=== PATIENT | female | born 1970 | race Caucasian/White ===

== ENCOUNTER → 2019-01-21 11:27 | Outpatient (CLI) | payer OTHER, SELFPAY ==
[2019-01-21 12:38] LABS: Add Manual Diff / Slide Review NO; Basophils Absolute Auto 100 /uL (0-100); Basophils Percent Auto 1.5 % (0-2); Eosinophils Absolute Auto 200 /uL (0-450); Eosinophils Percent Auto 3.5 % (2-4); Hematocrit 30.9 % (36-46); Hemoglobin 9.7 g/dL (12.0-16.0); Lymphocytes Absolute Auto 1200 /uL (1100-4500); Lymphocytes Percent Auto 19.7 % (25-40); Mean Corpuscular HGB Conc 31.5 % (30-36); Mean Corpuscular Hemoglobin 25.5 PG (26-34); Mean Corpuscular Volume 80.9 fL (80-100); Monocytes Absolute Auto 700 /uL (0-900); Neutrophils Absolute Auto 3800 /uL (1500-7000); Neutrophils Percent Auto 63.3 % (50-75); Platelet Count 279 X10^3/uL (150-400); Red Blood Cell Count 3.82 X10^6/uL (4.0-5.2); White Blood Cell Count 5.9 X10^3/uL (4.5-11.0)
[2019-01-21 12:52] LABS: Iron 24 ug/dL (37-170)
[2019-01-21 12:55] LABS: Alanine Aminotransferase 30 IU/L (9-52); Albumin 4.4 g/dL (3.5-5.0); Albumin Globulin Ratio 1.5 (1.0-2.8); Alkaline Phosphatase 45 U/L (38-126); Aspartate Aminotransferase 22 IU/L (14-36); Bilirubin Total 0.2 mg/dL (0.2-1.3); Blood Urea Nitrogen 15 mg/dL (7-17); Calcium 9.2 mg/dL (8.4-10.2); Carbon Dioxide 27 mmol/L (22-32); Chloride 102 mmol/L (98-107); Estimated Glomerular Filt Rate 59.4 mL/min (>60); Glucose 81 mg/dL (70-100); HEMOLYSIS < 15 (0-50); Potassium 4.3 mmol/L (3.4-5.1); Sodium 138 mmol/L (137-145); Total Protein 7.4 g/dL (6.3-8.2)
[2019-01-21 13:03] LABS: Percent Iron Saturation 6 % (15-50); Total Iron Binding Capacity 434 ug/dL (265-497); Transferrin 339 mg/dL (206-381)
[2019-01-21 13:25] LABS: HEMOLYSIS < 15 (0-50)
[2019-01-21 13:28] LABS: Ferritin 4.9 ng/mL (6.27-137)
[2019-01-21 13:58] LABS: Folate 13.6 ng/mL (2.76-20.0); Vitamin B12 522 pg/mL (239-931)
== END ==
PROVIDERS: PCP Physician Assistant; Visit Provider Physician Assistant
DX: D50.9 Iron deficiency anemia, unspecified (principal); E03.9 Hypothyroidism, unspecified; R53.83 Other fatigue
CPT/HCPCS: 36415; 80053; 82607; 82728; 82746; 83540; 83550; 84443; 85025

== ENCOUNTER → 2019-04-26 10:51 | Outpatient (CLI) | payer OTHER, SELFPAY | PROVIDERS: PCP Physician Assistant; Visit Provider Physician Assistant | DX: J02.9 Acute pharyngitis, unspecified (principal) | CPT/HCPCS: 87070; 87185 ==

== ENCOUNTER → 2019-05-04 16:03 | Outpatient (CLI) | payer OTHER, SELFPAY ==
[2019-05-04 17:03] LABS: Add Manual Diff / Slide Review NO; Basophils Absolute Auto 100 /uL (0-100); Basophils Percent Auto 1.4 % (0-2); Eosinophils Absolute Auto 200 /uL (0-450); Eosinophils Percent Auto 3.2 % (2-4); Hematocrit 31.9 % (36-46); Hemoglobin 10.5 g/dL (12.0-16.0); Lymphocytes Absolute Auto 1400 /uL (1100-4500); Lymphocytes Percent Auto 24.7 % (25-40); Mean Corpuscular HGB Conc 32.8 % (30-36); Mean Corpuscular Hemoglobin 26.4 PG (26-34); Mean Corpuscular Volume 80.4 fL (80-100); Monocytes Absolute Auto 500 /uL (0-900); Monocytes Percent Auto 9.2 % (3-14); Neutrophils Absolute Auto 3400 /uL (1500-7000); Neutrophils Percent Auto 61.5 % (50-75); Platelet Count 259 X10^3/uL (150-400); Red Blood Cell Count 3.97 X10^6/uL (4.0-5.2); Red Cell Distribution Width 20.4 % (11.6-14.8); White Blood Cell Count 5.5 X10^3/uL (4.5-11.0)
[2019-05-04 17:19] LABS: Alanine Aminotransferase 42 IU/L (9-52); Albumin 4.3 g/dL (3.5-5.0); Albumin Globulin Ratio 1.4 (1.0-2.8); Alkaline Phosphatase 63 U/L (38-126); Aspartate Aminotransferase 29 IU/L (14-36); Bilirubin Total 0.2 mg/dL (0.2-1.3); Blood Urea Nitrogen 21 mg/dL (7-17); Calcium 9.2 mg/dL (8.4-10.2); Carbon Dioxide 29 mmol/L (22-32); Chloride 102 mmol/L (98-107); Estimated Glomerular Filt Rate 59.2 mL/min (>60); Globulin 3.1 g/dL (1.7-4.1); Glucose 87 mg/dL (70-100); HEMOLYSIS < 15 (0-50); Iron 81 ug/dL (37-170); Potassium 4.4 mmol/L (3.4-5.1); Sodium 140 mmol/L (137-145); Total Protein 7.4 g/dL (6.3-8.2)
[2019-05-04 17:29] LABS: Percent Iron Saturation 23 % (15-50); Total Iron Binding Capacity 359 ug/dL (265-497); Transferrin 305 mg/dL (206-381)
[2019-05-04 17:51] LABS: Thyroid Stimulating Hormone 9.87 uIU/mL (0.47-4.68)
[2019-05-04 17:55] LABS: Ferritin 11.5 ng/mL (6.27-137)
[2019-05-04 19:55] LABS: Anisocytosis 1+; Poikilocytosis 1+
== END ==
PROVIDERS: PCP Physician Assistant; Visit Provider Physician Assistant
DX: D50.9 Iron deficiency anemia, unspecified (principal); K62.5 Hemorrhage of anus and rectum; E03.9 Hypothyroidism, unspecified
CPT/HCPCS: 36415; 80053; 82728; 83540; 83550; 84443; 85025

== ENCOUNTER 2019-06-07 13:57 | Day surgery (SDC) | payer OTHER, SELFPAY ==
[2019-06-07] VITALS (7 sets, daily range): BP systolic 110–127; BP diastolic 36–79; PULSE 69–93; RESP 9–15; TEMP 36.3–36.6; O2SAT 98–100; BMI 24.0
--- NOTE | 2019-06-07 | PATH_ITS ---
[facility] Accession Number: [id number] . 01 Material submitted: . colon - ASCENDING COLON POLYP . 02 Diagnosis: Biopsy, Ascending Colon Polyp: Tubular adenoma involving single biopsy fragment. V/06/09/2019 . 02 Electronically signed: . Ariel Reno MD, Pathologist NPI- [id number] . 01 Gross description: . ASCENDING COLON POLYP: Received in formalin are 2 fragment(s) of lima, soft tissue measuring 0.5 x 0.4 x 0.4 cm to 0.5 x 0.4 x 0.1 cm submitted entirely in 1 cassette(s) /CKI /CKI . 02 Pathologist provided ICD-10: D12.2 . 02 CPT . 563797 Performed at: 01 [facility] [address] [address], [place], [place] [id number] MD Aguilar Root MD Phone: [phone] Performed at: 02 [facility] [address] [place], [place] [id number] MD Amparo Holguin MD Phone: [phone]
[2019-06-07] MEDS: SODIUM CHLORIDE 0.9% 1,000 ML 200 ML IV ×2 (14:14→16:17)
[2019-06-07] MEDS: MIDAZOLAM 5 MG/5 ML VIAL IV ×3 (15:00→15:51)
--- NOTE | 2019-06-07 15:13 | PM.HP.1 ---
History of Present Illness Date Patient Seen: 06/07/19 Time Patient Seen: 15:13 Chief complaint: [id number] Narrative: Patient seen and examined unchanged since recent clinic exam Plan for diagnostic colonoscopy Patient History Medical History (Updated 06/07/19 @ 14:19 by Danielle Klein RN) Anxiety (Acute) Bruises easily (Acute) Constipation (Acute) Difficulty swallowing (Acute) Elevated cholesterol (Acute) Former smoker (Acute) History of headache (Acute) History of nausea (Acute) Shortness of breath (Acute) Anemia (Chronic ~2014) Eczema (Chronic ~2013) Headache (Chronic ~2014) Hypothyroidism (Chronic ~2014) Irregular menstrual cycle (Chronic ~2017) Seasonal allergies (Chronic) Abnormal Pap smear of cervix (Resolved ~2017) Chicken pox (Resolved ~1974) Surgical History (Updated 01/18/19 @ 22:31 by Daksha Queen) Hemorrhoid (Chronic ~2003) Anesthesia (Resolved) History of tubal ligation (Resolved ~1999) Family History (Updated 05/16/19 @ 16:46 by Suzy Shabazz RN) Father Diabetes mellitus Hypertension Hyperlipidemia Stroke Gallstones Mother Hyperlipidemia Hypertension Gallstones Sister Gallstones Grandmother Diabetes mellitus Stroke Grandfather Diabetes mellitus Stroke Social History (Updated 05/16/19 @ 16:47 by Suzy Shabazz RN) household members: family occupational status: employed Smoking Status: Former smoker (I quit in [id number].) Tobacco: How many years used: 12 second hand exposure: No alcohol intake: current (whiskey occasionally.) substance use type: does not use Family & Social History Family History (Updated 05/16/19 @ 16:46 by Suzy Shabazz RN) Father Diabetes mellitus Hypertension Hyperlipidemia Stroke Gallstones Mother Hyperlipidemia Hypertension Gallstones Sister Gallstones Grandmother Diabetes mellitus Stroke Grandfather Diabetes mellitus Stroke Social History: household members family Tobacco & Substance use: Smoking Status Former smoker alcohol intake current Meds Home Medications Medication Instructions Recorded Confirmed Type Desiccated Liver 750 mg PO BID 12/29/18 06/07/19 History Thyroid Energy 1 cap PO BID 12/29/18 06/07/19 History fluoxetine 10 mg capsule 20 mg PO .HS PRN cap 12/29/18 06/07/19 History ibuprofen 600 mg tablet 600 mg PO 2XW PRN tab 12/29/18 06/07/19 History levothyroxine 75 mcg tablet 75 mcg PO DAILY #45 tab 05/09/19 06/07/19 Rx Allergies Allergy/AdvReac Type Severity Reaction Status Date / Time No Known Drug Allergies Allergy Verified 06/07/19 14:15 Exam Vital Signs (past 8 hours): - 06/07/19 14:26 Temperature 97.9 F Pulse Rate 70 Respiratory Rate 15 Blood Pressure 127/78 Pulse Oximetry 100 Oxygen Delivery Method Room Air
[2019-06-07] MEDS: fentaNYL 250 MCG/5 ML INJ IV ×2 (15:38→15:51)
[2019-06-07] MEDS: GLUCAGON,HUMAN RECOMBINANT 1 MG/ML VIAL IV (15:38)
--- NOTE | 2019-06-07 16:14 | P.OP.ENDO_ITS ---
Operative Date/Time/Diagnoses Date of procedure: 06/07/19 Time of procedure: 16:10 Pre-op diagnosis: Rectal bleeding Post-op diagnosis: same Procedure & Clinicians Study performed: Diagnostic colonoscopy Cold biopsy forcep polypectomy x1 -right colon Same procedure as scheduled: Yes Indications: 49-year-old woman who presented clinic with rectal bleeding -she was found to have a prolapsed anal polyp that was quite sizable. Transanal excision is planned for this. Prior to surgery diagnostic colonoscopy was performed to ensure there were no more proximal lesions. Patient has never had a colonoscopy Surgeon: Brian Bartholomew Procedure Notes SCOAP/Timeout: complete Procedure in detail: Patient was brought to the endoscopy suite, time-out was completed. She was sedated over the entire course of the procedure with 12 mg of midazolam, 300 micro g of fentanyl. A digital rectal exam was per. Patient has all large polypoid mass with mucosal breakdown in the vicinity of the dentate line -this was previously identified in clinic. She had no further lesion. 160 cm colonoscope was advanced through the folds of the rectum and colon to the cecum. Patient had a markedly tight hepatic flexure which required her to be placed in prone position with multiple advancements in withdrawal maneuvers of the scope in order to move past it. The cecum was readily identified via the appendiceal orifice and a prominent i leocecal valve. The scope was then slowly withdrawn visualizing the mucosal surfaces -a small sessile polyp was identified in the right colon this was removed with cold biopsy forcep without incident. The remainder of the colon and rectal wall was without lesions -no diverticular disease noted. Prep was adequate Scope withdrawal time: Fourteen Sedation minutes: 45 Findings: polyp Specimen(s): other (Right colon polyp) Complications: none Impression: Large known anal polyp Signal right colon polyp s/p polypectomy Recommendations: Colonscopy in 5 years Plan for aftercare: To OR for transanal excision polyp Follow up: as needed Disposition: PACU
--- NOTE | 2019-06-07 17:03 | SUR.PHASEII ---
Pt drowsy. Juice provided. Denied pain. Family at bedside. Call light within reach.
--- NOTE | 2019-06-07 17:27 | SUR.PHASEII ---
Pt unsteady upon standing. Returned to bed. Call light within reach. Brother notified regarding delay. Report to [place].
== END 2019-06-07 17:54 | disposition home or self-care (01) ==
PROVIDERS: PCP Physician Assistant; Visit Provider Surgery
PROC: 0DJD8ZZ Inspection of Lower Intestinal Tract, Via Natural or Artificial Opening Endoscopic (ICD-10-PCS; CPT 45378; principal; 2019-06-07 15:00)
DX: K62.5 Hemorrhage of anus and rectum (principal); D12.2 Benign neoplasm of ascending colon
CPT/HCPCS: 45380; 99152; 99153; J1610; J2250; J3010

== ENCOUNTER 2019-06-29 06:24 | Day surgery (SDC) | payer OTHER, SELFPAY ==
[2019-06-14 07:57] VITALS: BMI 21.1
[2019-06-29] VITALS (12 sets, daily range): BP systolic 115–141; BP diastolic 55–73; PULSE 60–116; RESP 10–17; TEMP 36.1–36.5; O2SAT 94–100; BMI 21.3
--- NOTE | 2019-06-29 | PATH_ITS ---
[facility] Accession Number: [id number] . 01 Material submitted: . PART A: anal skin - POSTERIOR ANAL SKIN TAG PART B: hemorrhoids - LEFT LATERAL HEMORRHOID WITH RECTAL MASS . 01 Clinical history: . SHORT STITCH SUPERIOR . 02 Diagnosis: A. Specimen Designated Posterior Anal Skin Tag: Acrochordon, negative for atypia. . B. Specimen Designated Left Lateral Hemorrhoid With Rectal Mass: Fragments of internal hemorrhoids, negative for atypia. Prolapsed inflammatory polyp with mucosal hyperplasia, negative for atypia. [facility]/07/01/2019 . 02 Electronically signed: . Ariel Reno MD, Pathologist NPI- [id number] . 01 Gross description: . (A) Received in formalin, labeled posterior anal skin tag, is a piece of pale medellin-lima rubbery polypoid skin (1.5 x 1.1 x 0.6 cm). The resection margin is inked blue. Trisected and entirely submitted in cassette A1. (B) Received in formalin, labeled left lateral hemorrhoid with rectal mass, is a piece of medellin-lima apparent skin (1.5 x 1.4 x 0.5 cm) containing a lima rubbery polypoid mass (1.9 x 1.8 x 0.5 cm) oriented with a short black suture indicating the superior margin. The mass is 0.5 cm from the closest resection margin. Ink code: orange-superior/location of short suture; blue-lateral; black-medial. The resection margin is perpendicularly sectioned and entirely submitted in cassette B1, and the remaining specimen is serially sectioned and entirely submitted proximal to distal in cassettes B2-B3. Note: This specimen has been reviewed by Dr. April Castillo. ([id number]) /MRV . 02 Pathologist provided ICD-10: K62.1 . 02 CPT . 534297, 617844 Performed at: 01 [facility] [address] [id number] MD Aguilar Root MD Phone: [phone] Performed at: 02 [facility] [address] [place], [place] [id number] MD Amparo Holguin MD Phone: [phone]
[2019-06-29] MEDS: LACTATED RINGERS 1,000 ML 42 ML IV (10:15)
[2019-06-29] MEDS: metroNIDAZOLE 500 MG/100 ML PIGGYBACK 100 MG IV (10:35)
--- NOTE | 2019-06-29 10:35 | PM.HP.1 ---
History of Present Illness Date Patient Seen: 06/29/19 Time Patient Seen: 10:35 Chief complaint: [id number] Narrative: Patient seen and examined Unchanged from recent clinic note Plan for transanal rectal polypectomy of large polyp Patient History Medical History (Updated 06/07/19 @ 14:19 by Danielle Klein RN) Anxiety (Acute) Bruises easily (Acute) Constipation (Acute) Difficulty swallowing (Acute) Elevated cholesterol (Acute) Former smoker (Acute) History of headache (Acute) History of nausea (Acute) Shortness of breath (Acute) Anemia (Chronic ~2014) Eczema (Chronic ~2013) Headache (Chronic ~2014) Hypothyroidism (Chronic ~2014) Irregular menstrual cycle (Chronic ~2017) Seasonal allergies (Chronic) Abnormal Pap smear of cervix (Resolved ~2017) Chicken pox (Resolved ~1974) Surgical History (Updated 06/14/19 @ 08:05 by America Gillespie RN) History of colonoscopy (Acute) Hx of hemorrhoidectomy (Acute ~2002) Hemorrhoid (Chronic ~2003) Anesthesia (Resolved) History of tubal ligation (Resolved ~1999) Family History (Updated 05/16/19 @ 16:46 by Suzy Shabazz RN) Father Diabetes mellitus Hypertension Hyperlipidemia Stroke Gallstones Mother Hyperlipidemia Hypertension Gallstones Sister Gallstones Grandmother Diabetes mellitus Stroke Grandfather Diabetes mellitus Stroke Social History (Updated 05/16/19 @ 16:47 by Suzy Shabazz RN) household members: family occupational status: employed Smoking Status: Former smoker Tobacco: How many years used: 12 second hand exposure: No alcohol intake: current substance use type: does not use Family & Social History Family History (Updated 05/16/19 @ 16:46 by Suzy Shabazz RN) Father Diabetes mellitus Hypertension Hyperlipidemia Stroke Gallstones Mother Hyperlipidemia Hypertension Gallstones Sister Gallstones Grandmother Diabetes mellitus Stroke Grandfather Diabetes mellitus Stroke Social History: household members family Tobacco & Substance use: Smoking Status Former smoker alcohol intake current Substance Use Type does not use Meds Home Medications Medication Instructions Recorded Confirmed Type Desiccated Liver 750 mg PO BID 12/29/18 06/29/19 History Thyroid Energy 1 cap PO BID 12/29/18 06/07/19 History fluoxetine 10 mg capsule 20 mg PO .HS PRN cap 12/29/18 06/29/19 History ibuprofen 600 mg tablet 600 mg PO 2XW PRN tab 12/29/18 06/29/19 History levothyroxine 75 mcg tablet 75 mcg PO DAILY #45 tab 05/09/19 06/29/19 Rx Allergies Allergy/AdvReac Type Severity Reaction Status Date / Time tramadol AdvReac Severe Nausea Verified 06/29/19 07:38 Exam Vital Signs (past 8 hours): - 06/29/19 07:30 Temperature 97.6 F Pulse Rate 60 Respiratory Rate 16 Blood Pressure 115/72 Pulse Oximetry 98 Oxygen Delivery Method Room Air
[2019-06-29] MEDS: CEFTRIAXONE 2 GM/50 ML FROZ.PIGGY IV (10:46)
--- NOTE | 2019-06-29 11:11 | SUR.OPER ---
Prone on padded OR bed, head in foam head support, gel chest rolls, gel pad under knees, pillow under lower legs, toes free of pressure, arms secured on padded arm boards at <90 degrees abduction. Safety belt at thigh.
[2019-06-29] MEDS: BUPIVACAINE 0.25% W/ EPI 30 ML VIAL INJ (11:21)
[2019-06-29] MEDS: LIDOCAINE JELLY 2% 30 ML TOP (11:22)
--- NOTE | 2019-06-29 11:49 | P.OP_ITS ---
Operative Date/Time/Diagnoses Date of procedure: 06/29/19 Time of procedure: 11:40 Pre-op diagnosis: Anal mass Post-op diagnosis: other (Large anal polyp on apex of left lateral external hemorrhoid, posterior anal tag) Procedure & Clinicians Procedure: 1) Hernandez hemorrhoidectomy of left lateral columnn, with EN bloc excision of polypoid left anal mass 2) posterior skin tag excision Same procedure as scheduled: No Indications: 47-year-old woman who presented to the clinic with persistent rectal bleeding-she was found on exam to have a prolapsed polyp point anal mass on the left side, that was rubbery without area of hardness. She underwent a diagnostic colonoscopy to evaluate for any more proximal lesions -this was unremarkable. She now returns for excision. Surgeon: Brian Bartholomew Click Yes if Unassisted: Yes Anesthesia Type: General Operative Notes Findings: Soft rubbery polypoid lesion extending off of moderately enlarged external hemorrhoid of the left lateral column -lesion was approximately 1 x 2 cm 1 cm anal exam directly posterior Closure Type: primary Specimen(s): other (Posterior anal tag, left lateral hemorrhoid with anal mass) Estimated Blood Loss (mL): 10 Blood products transfused: none Procedure in detail: Patient was brought to the operating room she was intubated without incident she was placed in prone emmy-knife position. A time-out was completed. No the anoderm was carefully inspected there was a relatively large posterior anal skin tag in addition there was a obvious prolapse soft polypoid eroded mass on the left aspect of the anus. The entire anal column was then inspected using a Self retractors. There was not pathologic of the right posterior right anterior hemorrhoidal columns but the left lateral column was enlarged -on what appeared to be the apex of this was the base of the polypoid l esion. The decision was made then to do Hernandez hemorrhoidectomy excising of the pathologic hemorrhoid in addition to the polypoid mass that was perched on top of it. The skin tag due to its size was simply amputated sent to pathology Next proceeded with the hemorrhoidectomy and wedge of anoderm was excised and then using Bovie cautery a the mucosa in a and enlarged hemorrhoidal vessels were from the deeper layers of the anal canal. Of note of the internal anal sphincter was identified and carefully preserved. Once the majority of the hemorrhoid had been from the deeper structures to the proximal feeding vessel was identified and clamped this was suture ligated with a [id number] suture -the tissue was then excised and oriented for pathology. Short stitch superior long stitch inferior, double stitch anterior, blue stitch posterior. The mucosal defect was then closed taking 3 bites 1 of the anterior mucosa a deep bite of the underlying hemorrhoidal bed in an additional bite of the posterior mucosa this was continued until the entire defect was closed in a simple running fashion utilizing a 3 0 Vicryl Hemostasis was noted to be excellent At this point a perianal block was performed in all 4 quadrants utilizing 30 mL of 0.25% bupivacaine with epinephrine. A roll of Gelfoam was inserted into the anus to provide some gentle pressure this was copiously lubricated with lidocaine jelly Patient was extubated and brought to PACU without incident Complications: none Condition: stable Disposition: PACU Plan for aftercare: Home Follow-up in office
[2019-06-29] MEDS: MEPERIDINE 50 MG/ML INJ 25 MG IV (11:54)
[2019-06-29] MEDS: fentaNYL 100 MCG/2 ML INJ 50 MCG IV ×2 (12:08→12:27)
--- NOTE | 2019-06-29 12:21 | SUR.PHASEI ---
sats dropped to 80 on RA while sleeping. 2lnc applied, sats 100%.
--- NOTE | 2019-06-29 12:22 | SUR.PHASEI ---
Pt c/o mild itching, declined medication
[2019-06-29] MEDS: BENZOCAINE/MENTHOL 1 LOZ PKT 1 EACH PO (12:26)
--- NOTE | 2019-06-29 13:02 | SUR.PHASEII ---
crackers and water provided. Call light within reach.
[2019-06-29] MEDS: OXYCODONE/ACETAMINOPHEN 5/325 TABLET 1 TAB PO (13:22)
--- NOTE | 2019-06-29 14:02 | SUR.PHASEII ---
Assumed care of pt at this time. pt laying in bed with eyes closed, easily arousable to voice when spoken to. VSS. Iv site clear. pt reports pain level is tolerable at this time and denies any nausea. bed in lowest position and call light given to pt. pt appears comfortable at this time. pt friend at bedside.
--- NOTE | 2019-06-29 14:21 | SUR.PHASEII ---
Discharge instructions reviewed with pt by Perla Arredondo RN and given to pt prior to myself assuming care of pt. pt voiced understood dc instructions and had no further questions or concerns.
== END 2019-06-29 14:20 | disposition home or self-care (01) ==
PROVIDERS: PCP Physician Assistant; Visit Provider Surgery
PROC: (CPT 45990; principal; 2019-06-29 07:45)
DX: K64.8 Other hemorrhoids (principal); K64.4 Residual hemorrhoidal skin tags; K62.0 Anal polyp; K59.00 Constipation, unspecified; E03.9 Hypothyroidism, unspecified; Z87.891 Personal history of nicotine dependence
CPT/HCPCS: 46255; J0696; J1100; J2175; J2250; J2405; J2704; J3010

== ENCOUNTER 2019-07-26 05:55 | Emergency (ER) | payer OTHER, SELFPAY ==
[2019-07-26 06:12] VITALS: BP 150/50; PULSE 74; RESP 17; O2SAT 100; BMI 20.5
--- NOTE | 2019-07-26 06:21 | ED_ITS ---
HPI - Eye Problem General Chief complaint: Eye Problems Stated complaint: woke up with red eyes/poss pink eye/itchy Time Seen by Provider: 07/26/19 06:11 Source: patient Mode of arrival: ambulatory Limitations: no limitations History of Present Illness HPI Narrative: This is a 49-year-old female comes to the emergency department with complaints of red eyes, patient states that they feel itchy and sort of irritated. Started last night. And then when she woke up this morning the room much worse. Patient states that she has not had similar symptoms to this before. She has had pinkeye past but she states she had drainage and it was much different. She wears reader is occasionally but no contacts or regular classes. Patient did put eyedrops in after her eyes were irritated. Patient has not fevers. No vision changes. Patient states she is also having swelling in the skin around her eyes and below. She does not appreciate any swelling of her mouth or oropharynx. She does not have any changes to her voice, she has not noticed any rash or skin changes elsewhere. She did just have grab for the 1st time in decades. She states she has hypothyroid issues but denies any other major medical issues. She has had some chronic anemia. She was not aware of any allergies. Related Data Home Medications Medication Instructions Recorded Confirmed Desiccated Liver 750 mg PO BID 12/29/18 07/12/19 Thyroid Energy 1 cap PO BID 12/29/18 07/12/19 fluoxetine 10 mg capsule 20 mg PO .HS PRN cap 12/29/18 07/12/19 ibuprofen 600 mg tablet 600 mg PO 2XW PRN tab 12/29/18 07/12/19 Previous Rx's Medication Instructions Recorded levothyroxine 75 mcg tablet 75 mcg PO DAILY #45 tab 05/09/19 acetaminophen 650 mg PO Q6H #30 cap 06/29/19 oxycodone See Rx Instructions .ROUTE 06/29/19 .COMPLEX PRN #10 tab polyethylene glycol 3350 [Miralax] 17 gram PO DAILY #10 each 06/29/19 prednisone 50 mg PO DAILY #5 tab 07/26/19 Allergies Allergy/AdvReac Type Severity Reaction Status Date / Time tramadol AdvReac Severe Nausea Verified 07/26/19 06:16 Review of Systems Review of Systems ROS Unobtainable: All systems reviewed & are unremarkable except as noted in HPI and below Constitutional Constitutional: Denies chills and Denies fever(s) Eyes Eyes: Denies blind spots, Denies change in vision, Denies diplopia, Denies eye discharge (tearing), Reports irritation, Reports itchy eyes, Denies loss of vision, Denies eye pain, Denies requires corrective lenses, Denies photophobia and Reports other (swelling) ENT Ears, Nose, Mouth, and Throat: Reports as per HPI, Denies dysphagia, Denies hoarseness, Denies lip swelling, Denies mouth lesions, Denies throat swelling and Denies tongue swelling Gastrointestinal Gastrointestinal: Denies dysphagia, Denies nausea and Denies vomiting Neurologic Neurologic: Denies loss of vision Allergic/Immunologic Allergic/Immunologic: Reports itchy eyes, Denies lip swelling, Denies throat swelling and Denies tongue swelling [facility] Medical History Abnormal Pap smear of cervix (Resolved ~2017) Anemia (Chronic ~2014) Anxiety (Acute) Bruises easily (Acute) Chicken pox (Resolved ~1974) Constipation (Acute) Difficulty swallowing (Acute) Eczema (Chronic ~2013) Elevated cholesterol (Acute) Former smoker (Acute) Headache (Chronic ~2014) History of headache (Acute) History of nausea (Acute) Hypothyroidism (Chronic ~2014) Irregular menstrual cycle (Chronic ~2017) Seasonal allergies (Chronic) Shortness of breath (Acute) Surgical History Anesthesia (Resolved) Hemorrhoid (Chronic ~2003) History of colonoscopy (Acute) History of tubal ligation (Resolved ~1999) Hx of hemorrhoidectomy (Acute ~2002) Family History (Updated 05/16/19 @ 16:46 by Suzy Shabazz RN) Father Diabetes mellitus Hypertension Hyperlipidemia Stroke Gallstones Mother Hyperlipidemia Hypertension Gallstones Sister Gallstones Grandmother Diabetes mellitus Stroke Grandfather Diabetes mellitus Stroke Social History (Updated 05/16/19 @ 16:47 by Suzy Shabazz RN) household members: family occupational status: employed Smoking Status: Former smoker Tobacco: How many years used: 12 second hand exposure: No alcohol intake: current substance use type: does not use Family History Father Diabetes mellitus Hypertension Hyperlipidemia Stroke Gallstones Mother Hyperlipidemia Hypertension Gallstones Sister Gallstones Grandmother Diabetes mellitus Stroke Grandfather Diabetes mellitus Stroke Social History household members: family occupational status: employed Smoking Status: Former smoker Tobacco: How many years used: 12 second hand exposure: No alcohol intake: current substance use type: does not use Exam Narrative Exam Narrative: GEN: well nourished, well appearing female, alert and oriented x 3, patient appears to be in mild distress. HEENT: Atraumatic, pupils are equal round reactive to light, extraocular movements are intact, nares are clear, TMs are clear with no fluid, there is no conjunctival pallor. Patient has periorbital swelling, patient also has scleral swelling. Throat is clear without any exudates, erythema, tonsillar enlargement or uvular deviation, no swelling of the oropharynx, tongue. No mucous membrane involvement of the mouth. HEART: Regular rate and rhythm without murmur, clicks, rubs. LUNGS:Lungs clear to auscultation, no wheezes, rales, crackles, chest moves symmetrically ABD:bowel sounds normal, soft, non-tender, no guarding, rebound, rigidity, no masses noted, no hepatosplenomegaly MSCL: Non-tender, no muscle atrophy, muscles strength 5/5 upper and lower extremities, full range of motion, normal gait NEURO:CN 2-12 intact, sensation normal Initial Vital Signs Initial Vital Signs: Vital Signs Pulse Rate 74 07/26/19 06:12 Respiratory Rate 17 07/26/19 06:12 Blood Pressure 150/50 H 07/26/19 06:12 Pulse Oximetry 100 07/26/19 06:12 Course Orders Ordered: Discontinued Medications Diphenhydramine HCl (Benadryl) 50 mg PO NOW ONE Stop: 07/26/19 06:22 Last Admin: 07/26/19 06:27 Dose: 50 mg Documented by: MIESHA Prednisone (Deltasone) 60 mg PO NOW ONE Stop: 07/26/19 06:22 Last Admin: 07/26/19 06:27 Dose: 60 mg Documented by: MIESHA Vital Signs Vital signs: Vital Signs - 8 hr 07/26/19 06:12 Pulse Rate 74 Respiratory Rate 17 Blood Pressure 150/50 H Pulse Oximetry 100 MDM - Eye Problem MDM Narrative Medical decision making narrative: I suspect patient may be having more of an allergic reaction than a conjunctivitis. Or that she is having an allergic type conjunctivitis. Patient did have crab which is new to her. She does have periorbital swelling as well that is extending beneath the rim of the orbit. It is not erythematous. Discussed with patient would like to try some prednisone as well as Benadryl and see if this is improving her symptoms. Patient feels like it is improving. We discussed that I would recommend short term follow up with Ophthalmology. Patient will call to set up follow-up today or tomorrow at the latest. Discharge Plan Departure Clinical Impression: Allergic reaction, Periorbital swelling Activity Restrictions/Additional Instructions: Follow-up with Ophthalmology in the next 24 hours if you are not having any improvement in symptoms. Continue prednisone daily until gone. Prescription was sent to [facility] in [place]. Take Benadryl 1-2 tablets every 6-8 hours as needed for symptoms. Return to the emergency department for new or worsening symptoms, any swelling of your airway, lips tongue, difficulty breathing, hoarseness or changes to voice, increasing rash or swelling that is spreading, lightheadedness, passing out, persistent vomiting, black or bloody stools or other new or concerning symptoms. Prescriptions: New prednisone 50 mg tablet 50 mg PO DAILY Qty: 5 RF: 0 No Action fluoxetine 10 mg capsule 20 mg PO .HS PRN (Reason: Anxiety) RF: 0 Desiccated Liver 750 mg PO BID RF: 0 Thyroid Energy 1 cap PO BID RF: 0 ibuprofen 600 mg tablet 600 mg PO 2XW PRN (Reason: Pain) RF: 0 levothyroxine 75 mcg tablet 75 mcg PO DAILY Qty: 45 RF: 1 acetaminophen 325 mg capsule 650 mg PO Q6H Qty: 30 RF: 0 oxycodone 5 mg tablet See Rx Instructions .ROUTE .COMPLEX PRN (Reason: pain) Qty: 10 RF: 0 polyethylene glycol 3350 [Miralax] 17 gram powder in packet 17 gram PO DAILY Qty: 10 RF: 0 Referrals: Reji Maddox MD [Physician] - Charley Valle PA-C [Primary Care Provider] -
[2019-07-26] MEDS: predniSONE 20 MG TABLET 60 MG PO (06:27)
[2019-07-26] MEDS: diphenhydrAMINE 25 MG TABLET 50 MG PO (06:27)
[2019-07-26 06:55] VITALS: BP 144/72; PULSE 70; RESP 14; O2SAT 100
== END 2019-07-26 06:57 | disposition home or self-care (01) ==
PROVIDERS: Emergency Provider Emergency Medicine; PCP Physician Assistant
DX: T78.40XA Allergy, unspecified, initial encounter (principal); H57.89 Other specified disorders of eye and adnexa
CPT/HCPCS: 99283

== ENCOUNTER → 2019-08-25 14:39 | Outpatient (CLI) | payer OTHER, SELFPAY ==
[2019-08-25 17:07] LABS: Thyroid Stimulating Hormone 5.79 uIU/mL (0.47-4.68)
== END ==
PROVIDERS: PCP Physician Assistant; Visit Provider Physician Assistant
DX: E03.9 Hypothyroidism, unspecified (principal)
CPT/HCPCS: 36415; 84443

== ENCOUNTER → 2020-05-01 14:15 | Outpatient (CLI) | payer OTHER, SELFPAY | PROVIDERS: PCP Physician Assistant; Referring Provider Family Medicine; Visit Provider Family Medicine | DX: E03.9 Hypothyroidism, unspecified (principal) | CPT/HCPCS: 36415; 84443 ==

== ENCOUNTER → 2021-04-04 12:28 | Outpatient (CLI) | payer OTHER, SELFPAY ==
[2021-04-04 13:50] LABS: Add Manual Diff / Slide Review NO; Basophils Absolute Auto 100 /uL (0-100); Eosinophils Absolute Auto 100 /uL (0-450); Hematocrit 37.3 % (36-46); Hemoglobin 12.2 g/dL (12.0-16.0); Lymphocytes Absolute Auto 1300 /uL (1100-4500); Lymphocytes Percent Auto 22.4 % (25-40); Mean Corpuscular HGB Conc 32.7 % (30-36); Mean Corpuscular Hemoglobin 31.2 PG (26-34); Mean Corpuscular Volume 95.3 fL (80-100); Monocytes Absolute Auto 600 /uL (0-900); Monocytes Percent Auto 9.3 % (3-14); Neutrophils Absolute Auto 3900 /uL (1500-7000); Neutrophils Percent Auto 65.3 % (50-75); Platelet Count 195 X10^3/uL (150-400); Red Blood Cell Count 3.91 X10^6/uL (4.0-5.2)
[2021-04-04 14:27] LABS: HEMOLYSIS < 15 (0-50); Iron 84 ug/dL (37-170)
[2021-04-04 14:29] LABS: Alanine Aminotransferase 24 IU/L (<35); Albumin 4.9 g/dL (3.5-5.0); Albumin Globulin Ratio 1.5 (1.0-2.8); Alkaline Phosphatase 53 U/L (38-126); Aspartate Aminotransferase 32 IU/L (14-36); Bilirubin Total 0.5 mg/dL (0.2-1.3); Blood Urea Nitrogen 21 mg/dL (7-17); Calcium 10.3 mg/dL (8.4-10.2); Carbon Dioxide 27 mmol/L (22-32); Chloride 99 mmol/L (98-107); Cholesterol 272 mg/dL (140-199); Estimated Glomerular Filt Rate 58.9 mL/min (>60); Globulin 3.2 g/dL (1.7-4.1); Glucose 74 mg/dL (70-100); HDL Cholesterol 106 mg/dL (40-60); HEMOLYSIS < 15 (0-50); LDL Cholesterol Calculated 154 mg/dL (<100); Potassium 4.5 mmol/L (3.4-5.1); Sodium 137 mmol/L (137-145); Total Protein 8.1 g/dL (6.3-8.2); Triglycerides 58 mg/dL (35-150)
[2021-04-04 14:37] LABS: Percent Iron Saturation 25 % (15-50); Total Iron Binding Capacity 332 ug/dL (265-497); Transferrin 292 mg/dL (206-381)
[2021-04-04 17:46] LABS: Free T4, Direct Thyroxine 0.78 ng/dL (0.78-2.19)
== END ==
PROVIDERS: PCP Registered Nurse Diabetes Educator; Referring Provider Registered Nurse Diabetes Educator; Visit Provider Registered Nurse Diabetes Educator
DX: Z00.00 Encounter for general adult medical examination without abnormal findings (principal); E03.9 Hypothyroidism, unspecified; F41.9 Anxiety disorder, unspecified; Z86.2 Personal history of diseases of the blood and blood-forming organs and certain disorders involving the immune mechanism
CPT/HCPCS: 36415; 80053; 80061; 83540; 83550; 84439; 84443; 85025

== ENCOUNTER → 2021-04-22 12:29 | Outpatient (CLI) | payer OTHER, SELFPAY ==
--- NOTE | 2021-04-22 12:31 | DI.US.S_ITS ---
PROCEDURE: US RENAL COMPLETE INDICATIONS: CKD3 TECHNIQUE: Real-time scanning was performed of the kidneys and bladder, with image documentation. COMPARISON: None. FINDINGS: Kidneys: Kidneys are normal in size. Right kidney measures 10.7 cm long; left kidney measures 10.0 cm long. No hydronephrosis or nephrolithiasis. No solid masses. No cysts. Bladder: Pre-void bladder volume is 120 mL. Post-void residual is 0 mL. Pre-void images demonstrate no intraluminal masses or stones. On pre-void images, bilateral ureteral jets are noted with color Doppler interrogation. (Of note, ureteral jets may not be detectable in up to 25% of cases due to insufficient differences in specific gravity between ureteral and bladder urine). Miscellaneous: No free pelvic fluid. IMPRESSION: Normal renal ultrasound. Dictated by: Luis Ham M.D. on 04/22/2021 at 14:41 Approved by: Luis Ham M.D. on 04/22/2021 at 14:43
== END ==
PROVIDERS: PCP Registered Nurse Diabetes Educator; Referring Provider Registered Nurse Diabetes Educator; Visit Provider Registered Nurse Diabetes Educator
DX: N18.9 Chronic kidney disease, unspecified (principal)
CPT/HCPCS: 76770

== ENCOUNTER → 2021-05-10 10:15 | Outpatient (CLI) | payer OTHER, SELFPAY ==
[2021-05-10 10:20] LABS: Bacteria Urine None Seen; WBC Urine None Seen (0-5/HPF)
[2021-05-10 12:17] LABS: Appearance Urine UA CLEAR; Bilirubin Urine UA NEGATIVE (NEGATIVE); Color Urine UA YELLOW; Glucose Urine UA NEGATIVE (Negative); Ketones Urine UA NEGATIVE (NEGATIVE); Leukocyte Esterase Urine UA NEGATIVE (NEGATIVE); Nitrite Urine UA NEGATIVE (Negative); Occult Blood Urine UA TRACE-LYSED (Negative); Protein Urine UA NEGATIVE (Negative); Urobilinogen Urine UA 0.2 E.U./dL (0.2)
[2021-05-10 12:24] LABS: pH Urine UA 6.5 (4.5-8.0)
[2021-05-10 12:29] LABS: Alanine Aminotransferase 20 IU/L (<35); Albumin 4.4 g/dL (3.5-5.0); Albumin Globulin Ratio 1.5 (1.0-2.8); Alkaline Phosphatase 48 U/L (38-126); Aspartate Aminotransferase 28 IU/L (14-36); BUN Creatinine Ratio 20.4 (6-22); Bilirubin Total 0.4 mg/dL (0.2-1.3); Blood Urea Nitrogen 19 mg/dL (7-17); Calcium 9.7 mg/dL (8.4-10.2); Carbon Dioxide 27 mmol/L (22-32); Chloride 103 mmol/L (98-107); Estimated Glomerular Filt Rate > 60.0 mL/min (>60); Glucose 83 mg/dL (70-100); HEMOLYSIS < 15 (0-50); Potassium 4.1 mmol/L (3.4-5.1); Sodium 136 mmol/L (137-145); Total Protein 7.4 g/dL (6.3-8.2)
[2021-05-10 12:35] LABS: Culture Indicated Urine Cult Not Indicated; RBC Urine 0-1/HPF (0-5/HPF); Squamous Epithelial Cell Urine 0-1 /HPF (0-5/HPF)
[2021-05-10 13:01] LABS: TSH w/ Reflex to FT4 2.34 uIU/mL (0.47-4.68)
[2021-05-10 14:07] LABS: Creatinine Urine Random 73.6 mg/dL
[2021-05-10 14:12] LABS: Microalbumin Urine Random < 0.6 mg/dL (0-1.6)
== END ==
PROVIDERS: PCP Registered Nurse Diabetes Educator; Referring Provider Registered Nurse Diabetes Educator; Visit Provider Registered Nurse Diabetes Educator
DX: E03.9 Hypothyroidism, unspecified (principal); E83.52 Hypercalcemia; N18.9 Chronic kidney disease, unspecified
CPT/HCPCS: 36415; 80053; 81001; 82043; 82570; 84443

== ENCOUNTER → 2021-08-20 15:55 | Outpatient (CLI) | payer OTHER, SELFPAY ==
--- NOTE | 2021-08-20 15:56 | DI.MG.S_ITS ---
BILATERAL DIGITAL SCREENING MAMMOGRAM 3D/2D WITH CAD: 08/20/2021 CLINICAL: Routine screening. Comparison is made to exams dated: 03/13/2014 mammogram, 12/16/2010 mammogram, and 12/16/2010 ultrasound - outside. The tissue of both breasts is heterogeneously dense. This may lower the sensitivity of mammography. Current study was also evaluated with a Computer Aided Detection (CAD) system. There are grouped fine punctate calcifications in the left breast at 1 o'clock posterior depth. No other significant masses, calcifications, or other findings are seen in either breast. IMPRESSION: INCOMPLETE: NEEDS ADDITIONAL IMAGING EVALUATION The grouped fine punctate calcifications in the left breast are indeterminate. Mediolateral, spot magnification, and additional views are recommended. This exam was interpreted at Station ID: [id number]. NOTE: For mammograms, a report in lay terms will be sent to the patient. Approximately 15% of breast malignancies will not be visualized mammographically. In the management of a palpable breast mass, a negative mammogram must not discourage biopsy of a clinically suspicious lesion. Electronically Signed By: Aguilar hassan/anne:08/21/2021 08:27:47 letter sent: Additional Imaging Needed ACR BI-RADS Category 0: Incomplete 3340F
== END ==
PROVIDERS: PCP Registered Nurse Diabetes Educator; Referring Provider Registered Nurse Diabetes Educator; Visit Provider Registered Nurse Diabetes Educator
DX: Z12.31 Encounter for screening mammogram for malignant neoplasm of breast (principal)
CPT/HCPCS: 77063; 77067

== ENCOUNTER → 2021-09-18 13:17 | Outpatient (CLI) | payer OTHER, SELFPAY ==
--- NOTE | 2021-09-18 | DI.MG.S_ITS ---
UNILATERAL LEFT DIGITAL DIAGNOSTIC MAMMOGRAM 3D/2D WITH ADDITIONAL VIEWS: 09/18/2021 CLINICAL: Additional evaluation requested from prior study. Comparison is made to exams dated: 08/20/2021 mammogram - [facility], 03/13/2014 mammogram, and 12/16/2010 mammogram - outside. The tissue of left breast is heterogeneously dense. This may lower the sensitivity of mammography. The previously identified grouped fine calcifications in the left breast at 1 o'clock posterior depth demonstrate layering on the lateral views. There are also a few grouped fine calcifications in the left breast at 1 o'clock middle depth. No other significant masses or calcifications are seen in the breast. IMPRESSION: PROBABLY BENIGN The grouped fine and layering calcifications in the left breast at 1 o'clock posterior depth are consistent with milk of calcium and are benign. The grouped fine calcifications in the left breast at 1 o'clock middle depth are probably benign. A follow-up mammogram in 6 months is recommended. A follow-up mammogram in 6 months is recommended to demonstrate stability. This exam was interpreted at Station ID: [id number]. NOTE: For mammograms, a report in lay terms will be sent to the patient. Approximately 15% of breast malignancies will not be visualized mammographically. In the management of a palpable breast mass, a negative mammogram must not discourage biopsy of a clinically suspicious lesion. Electronically Signed By: Aguilar hassan/:09/18/2021 14:04:46 letter sent: Followup Recommended ACR BI-RADS Category 3: Probably benign 3343F
== END ==
PROVIDERS: PCP Registered Nurse Diabetes Educator; Referring Provider Registered Nurse Diabetes Educator; Visit Provider Registered Nurse Diabetes Educator
DX: R92.8 Other abnormal and inconclusive findings on diagnostic imaging of breast (principal); R92.1 Mammographic calcification found on diagnostic imaging of breast
CPT/HCPCS: 77065; G0279

== ENCOUNTER → 2022-02-25 15:22 | Outpatient (CLI) | payer OTHER, SELFPAY ==
--- NOTE | 2022-02-25 15:24 | DI.RAD.S_ITS ---
PROCEDURE: XR ANKLE LT MIN 3V INDICATIONS: eval L lateral ankle pain TECHNIQUE: 3 views of the ankle were acquired. COMPARISON: None. FINDINGS: Bones: No acute fractures or dislocations. Smooth, well corticated osseous density adjacent to the tip of the lateral malleolus. Ankle mortise is normally aligned. No suspicious bony lesions. Soft tissues: No tibiotalar joint effusion. Achilles tendon appears normal. IMPRESSION: Possible remote fracture involving the inferior margin of the distal fibula or possible bony ossicle. Intra-articular body cannot be excluded. Dictated by: Timoteo Kelley [facility] Interpreted: Iris Live MD on 02/25/2022 at 16:37 Transcribed by: KIZZY on 02/25/2022 at 16:39 Approved by: Iris Live M.D. on 02/25/2022 at 18:08
== END ==
PROVIDERS: PCP Registered Nurse Diabetes Educator; Referring Provider Registered Nurse Diabetes Educator; Visit Provider Registered Nurse Diabetes Educator
DX: M25.572 Pain in left ankle and joints of left foot (principal)
CPT/HCPCS: 73610

== ENCOUNTER → 2022-03-18 14:28 | Outpatient (CLI) | payer OTHER, SELFPAY | PROVIDERS: PCP Registered Nurse Diabetes Educator; Visit Provider Physician Assistant | DX: J02.9 Acute pharyngitis, unspecified (principal) | CPT/HCPCS: 87070 ==

== ENCOUNTER → 2022-03-18 14:33 | Outpatient (CLI) | payer OTHER, SELFPAY ==
--- NOTE | 2022-03-18 14:34 | DI.CT.S_ITS ---
PROCEDURE: CT LE LT W CON INDICATIONS: abnormal ankle x-ray TECHNIQUE: Noncontrast 1-1.5 mm axial sections acquired from above the tibiotalar joint to the bottom of the calcaneus, with coronal and sagittal reformats. COMPARISON: [facility], CR, XR ANKLE LT MIN 3V, 02/25/2022, 15:55. FINDINGS: Image quality: Excellent. Bones: No acute, displaced fracture. The ankle mortise is maintained. Multiple ossific lesions are seen distal to the lateral malleolus, likely reflecting remote traumatic injury. Os trigonum and an accessory cuboid are seen. Mild osteophytosis of the 1st MTP. Maintained fat attenuation within the sinus tarsi. Soft tissues: Small tibiotalar joint effusion. IMPRESSION: Remote fracture deformity of the lateral malleolus. If the patient's pain persists, consider magnetic resonance imaging. Dictated by: Carlos Davila M.D. on 03/18/2022 at 16:37 Approved by: Carlos Davila M.D. on 03/18/2022 at 16:40
== END ==
PROVIDERS: PCP Registered Nurse Diabetes Educator; Referring Provider Registered Nurse Diabetes Educator; Visit Provider Registered Nurse Diabetes Educator
DX: R93.6 Abnormal findings on diagnostic imaging of limbs (principal); M25.572 Pain in left ankle and joints of left foot; J02.9 Acute pharyngitis, unspecified
CPT/HCPCS: 73700; 87070

== ENCOUNTER → 2022-04-16 08:57 | Outpatient (CLI) | payer OTHER, SELFPAY ==
--- NOTE | 2022-04-16 08:58 | DI.MG.S_ITS ---
UNILATERAL LEFT DIGITAL DIAGNOSTIC MAMMOGRAM 3D/2D SHORT-TERM FOLLOW-UP: 04/16/2022 CLINICAL: Short term follow up for the left breast. Comparison is made to exams dated: 09/18/2021 mammogram, 08/20/2021 mammogram - [facility], and 03/13/2014 mammogram - outside. The tissue of left breast is heterogeneously dense. This may lower the sensitivity of mammography. There are stable grouped fine calcifications in the left breast at 12 o'clock middle depth. No other significant masses or calcifications are seen in the breast. IMPRESSION: PROBABLY BENIGN The stable grouped fine calcifications in the left breast are probably benign. A follow-up mammogram in 6 months is recommended. A follow-up mammogram in 6 months is recommended to demonstrate stability. This exam was interpreted at Station ID: [id number]. NOTE: For mammograms, a report in lay terms will be sent to the patient. Approximately 15% of breast malignancies will not be visualized mammographically. In the management of a palpable breast mass, a negative mammogram must not discourage biopsy of a clinically suspicious lesion. Electronically Signed By: Luis Ham acr/anne:04/16/2022 09:37:42 letter sent: Followup Recommended ACR BI-RADS Category 3: Probably benign [id number]
== END ==
PROVIDERS: PCP Registered Nurse Diabetes Educator; Referring Provider Registered Nurse Diabetes Educator; Visit Provider Registered Nurse Diabetes Educator
DX: R92.1 Mammographic calcification found on diagnostic imaging of breast (principal)
CPT/HCPCS: 77065; G0279

== ENCOUNTER → 2022-07-02 09:33 | Outpatient (CLI) | payer OTHER, SELFPAY ==
[2022-07-02 10:40] LABS: Hematocrit 37.7 % (36-46); Hemoglobin 12.9 g/dL (12.0-16.0); Mean Corpuscular HGB Conc 34.3 % (30-36); Mean Corpuscular Hemoglobin 32.1 PG (26-34); Mean Corpuscular Volume 93.4 fL (80-100); Platelet Count 176 X10^3/uL (150-400); Red Blood Cell Count 4.04 X10^6/uL (4.0-5.2); White Blood Cell Count 3.7 X10^3/uL (4.5-11.0)
[2022-07-02 11:03] LABS: Alanine Aminotransferase 23 IU/L (<35); Albumin 4.7 g/dL (3.5-5.0); Albumin Globulin Ratio 1.3 (1.0-2.8); Alkaline Phosphatase 59 U/L (38-126); Aspartate Aminotransferase 29 IU/L (14-36); Bilirubin Total 0.5 mg/dL (0.2-1.3); Blood Urea Nitrogen 21 mg/dL (7-17); Calcium 9.8 mg/dL (8.4-10.2); Carbon Dioxide 29 mmol/L (22-32); Chloride 100 mmol/L (98-107); Cholesterol 317 mg/dL (140-199); Estimated Glomerular Filt Rate > 60 mL/min (>60); Globulin 3.5 g/dL (1.7-4.1); Glucose 87 mg/dL (70-100); HDL Cholesterol 89 mg/dL (40-60); HEMOLYSIS < 15 (0-50); LDL Cholesterol Calculated 217 mg/dL (<100); Potassium 4.7 mmol/L (3.4-5.1); Sodium 137 mmol/L (137-145); Total Protein 8.2 g/dL (6.3-8.2); Triglycerides 55 mg/dL (35-150)
[2022-07-02 11:32] LABS: TSH w/ Reflex to FT4 7.07 uIU/mL (0.47-4.68)
[2022-07-02 12:32] LABS: Free T4, Direct Thyroxine 1.29 ng/dL (0.78-2.19)
== END ==
PROVIDERS: PCP Registered Nurse Diabetes Educator; Referring Provider Registered Nurse Diabetes Educator; Visit Provider Registered Nurse Diabetes Educator
DX: E03.9 Hypothyroidism, unspecified (principal); E83.52 Hypercalcemia; F41.9 Anxiety disorder, unspecified; N18.31 Chronic kidney disease, stage 3a; Z01.419 Encounter for gynecological examination (general) (routine) without abnormal findings
CPT/HCPCS: 36415; 80053; 80061; 84439; 84443; 85027

== ENCOUNTER → 2022-09-30 10:48 | Outpatient (CLI) | payer OTHER, SELFPAY ==
[2022-09-30 12:59] LABS: Blood Urea Nitrogen 22 mg/dL (7-17); Calcium 9.4 mg/dL (8.4-10.2); Carbon Dioxide 29 mmol/L (22-32); Chloride 100 mmol/L (98-107); Estimated Glomerular Filt Rate > 60 mL/min (>60); Glucose 80 mg/dL (70-100); HEMOLYSIS < 15 (0-50); Potassium 3.9 mmol/L (3.4-5.1); Sodium 138 mmol/L (137-145)
[2022-09-30 13:17] LABS: TSH w/ Reflex to FT4 0.77 uIU/mL (0.47-4.68)
== END ==
PROVIDERS: PCP Registered Nurse Diabetes Educator; Referring Provider Registered Nurse Diabetes Educator; Visit Provider Registered Nurse Diabetes Educator
DX: E03.9 Hypothyroidism, unspecified (principal); R94.4 Abnormal results of kidney function studies
CPT/HCPCS: 36415; 80048; 84443